=== PATIENT | female | born 1945 | race Two or more races ===

== ENCOUNTER 2020-04-12 10:37 | Outpatient (CLI) | payer OTHER | END 2020-04-12 10:44 | disposition home or self-care (01) | LOC: RAD 10:37 | PROVIDERS: ATTEND Urology | DX: N20.1 Calculus of ureter (principal) ==

== ENCOUNTER 2022-06-12 18:28 | Emergency (ER) | payer OTHER ==
[~2022-06-12] VITALS: Ht 147.3 cm; Wt 46.7 kg
[2022-06-12] MEDS ORDERED: FLECAINIDE ACE150 MG PO (18:37)
[2022-06-12] MEDS ORDERED: CRESTOR10 MG PO (18:37)
== END 2022-06-12 22:25 | disposition home or self-care (01) ==
LOC: ER 18:28
DX: R06.02 Shortness of breath (principal); Z20.822 Contact with and (suspected) exposure to COVID-19

== ENCOUNTER 2025-05-22 13:35 | Inpatient (IN) | payer OTHER ==
[~2025-05-22] VITALS: Ht 27.9 cm; Wt 47.2 kg
[~2025-05-22 13:35] MED LIST: CRESTOR10 MG PO; FLECAINIDE ACE150 MG PO
[2025-05-22 14:40] LABS: URINE APPEARANCE Clear; URINE BACTERIA 8.4 uL (0.0-1933); URINE BILIRRUBIN Negative (NEGATIVE); URINE BLOOD Large; URINE COLOR Yellow; URINE GLUCOSE Negative (NEGATIVE); URINE KETONE Negative (NEGATIVE); URINE LEUKOCYTE Negative; URINE NITRATE Negative; URINE PROTEIN Negative (NEGATIVE); URINE RBC 129.5 uL (0.0-20.8); URINE UROBILINOGEN 0.2 E.U./dl; URINE WBC 7.8 uL (0.0-23.2)
[2025-05-22 14:41] LABS: BASO % 0.4 % (0.1-1.2); EOS # 0.09 (0.04-0.54); EOS % 1.3 % (0.7-7.0); LYMPH # 1.34 (1.18-3.74); LYMPH % 19.6 % (19.3-53.1); MEAN PLATELET VOLUME 9.60 fl (9.4-12.4); MONO # 0.50 (0.24-0.82); MONO % 7.3 % (4.7-12.5); NEUT # 4.86 (1.56-6.13); NEUT % 71.1 % (34.0-71.1); RED CELL DISTRIBUTION WIDTH 14.6 % (11.6-14.4)
[2025-05-22 14:49] LABS: URINE CAST 0.00 uL (0.0-1.40); URINE EPITHELIAL CELLS 1.0 uL (0.0-38.8)
[2025-05-22 15:03] LABS: INR 0.98
[2025-05-22 15:18] LABS: ALT/SGPT 27.0 U/L (12-78); AST/SGOT 24.0 U/L (15-37); BILIRUBIN TOTAL 0.43 mg/dL (0.3-1.2); BUN CREA RATIO 15.0 (7.0-25.0); CREATININE SERUM 0.89 mg/dL (0.55-1.02); GFR 60.72; GLOBULINA 3.2 G/DL (2.4-3.5); GLUCOSE FASTING 90.0 mg/dL (65-100); OSMOLALITY SERUM 290.0 MOSM/KG (275-295)
[2025-05-22] MEDS ORDERED: 0.9 % SODIUM CHLORIDE 1,000 ML IV SCH (15:45)
[2025-05-22] MEDS ORDERED: MORPHINE SULFATE 4 MG/ML CARTRIDGE IV PRN (16:45)
[2025-05-22] MEDS ORDERED: ENALAPRILAT DIHYDRATE 1.25 MG/ML VIAL IV PRN (16:45)
[2025-05-22 16:54] VITALS: BP 151/75; O2SAT 97
[2025-05-22] MEDS ORDERED: CEFTRIAXONE SODIUM 2,000 MG in 0.9 % SODIUM CHLORIDE 100 ML IV SCH (17:00)
[2025-05-22] MEDS ORDERED: LACTOBACILLUS ACIDOPHILUS 1 CAP CAP PO SCH (17:00)
[2025-05-23 00:30] VITALS: BP 108/69; O2SAT 100
[2025-05-23] MEDS ORDERED: PANTOPRAZOLE SODIUM 40 MG TABLET.DR PO SCH (07:30)
[2025-05-23 08:46] VITALS: BP 133/62; O2SAT 97
[2025-05-23] MEDS ORDERED: FF) FLECAINIDE ACETATE 50MG TAB PO SCH (09:00)
[2025-05-23] MEDS ORDERED: METOPROLOL SUCCINATE 50 MG TAB.SR.24H PO SCH (09:00)
[2025-05-23] MEDS ORDERED: ENALAPRILAT DIHYDRATE 1.25 MG/ML VIAL IV ONE (15:16)
[2025-05-23] MEDS ORDERED: ONDANSETRON HCL 2 MG/ML VIAL ONE (16:06)
[2025-05-23] MEDS ORDERED: CEFTRIAXONE SODIUM 2,000 MG VIAL ONE (16:58)
[2025-05-23 18:43] VITALS: BP 130/65; O2SAT 96
[2025-05-23] MEDS ORDERED: MORPHINE SULFATE 4 MG/ML CARTRIDGE IV PRN (18:59)
[2025-05-23] MEDS ORDERED: OxyCODONE HCL 5 MG TABLET (ROXICODONE) PO PRN (19:00)
[2025-05-23] MEDS ORDERED: ACETAMINOPHEN 500 MG GEL..CAP PO PRN (20:45)
[2025-05-24 02:11] VITALS: BP 114/69; O2SAT 95
== END 2025-05-24 10:34 | disposition home or self-care (01) | DRG 661 ==
LOC: SURH 13:35
PROVIDERS: Urology; ADMIT Internal Medicine; ATTEND Internal Medicine
PROC: 0TF78ZZ Fragmentation in Left Ureter, Via Natural or Artificial Opening Endoscopic (ICD-10-PCS; 2025-05-23)
PROC: 0T778DZ Dilation of Left Ureter with Intraluminal Device, Via Natural or Artificial Opening Endoscopic (ICD-10-PCS; principal; 2025-05-23 11:00)
DX: N20.1 Calculus of ureter (principal)